=== PATIENT | female | born 1975 | race Asian ===

== ENCOUNTER 2023-04-24 12:39 | Emergency (ER) | payer OTHER, SELFPAY ==
[2023-04-24 12:42] VITALS: BP 120/65
--- NOTE | 2023-04-24 13:17 | ED.GENMED ---
History of Present Illness
<Elizabeth Manriquez PA-C - Last Filed: 04/24/23 18:05>
General
Chief Complaint: Chest Pain
Source: patient
Exam Limitations: none
Time Seen by Provider: 04/24/23 13:14
Nursing documentation reviewed up to this point in time: agreed with
Travel History
Have you had any contact with someone who has COVID-19?: No
Do you have any symptoms of coronavirus? Fever > 100 degrees, chills, cough, shortness of breath, sore throat, loss of taste or smell, muscle aches, or headache?: No
History of Present Illness
History of Present Illness:
This is a 48-year-old male with past medical history of hypothyroidism, anxiety, depression is presenting to the emergency department today with chest pain x 1 week. She states that the chest pain started randomly a week ago and she describes the
pain as a tightness. She says the pain is intermittent and is a 6-7 out of 10 when it comes on. She states that the pain is radiated to the right arm and right neck, as well as the legs. She states that she has numbness and tingling in her right
arm and hand. She has associated dry cough, and nausea. She denies fevers or chills, shortness of breath. She denies any recent surgeries, history of cancer, long distance travel. She states that she has also had increased palpitations. She
says she that she gets palpitations with her anxiety but she states that she gets these even she does not feel anxious. They come on randomly and are not associated necessarily with the pain. She tried Pepcid for pain think it could be heartburn
but that this did not help. She takes sertraline and lamotrigine for her anxiety/depression and wears an estradiol patch.
Past History
<Elizabeth Manriquez PA-C - Last Filed: 04/24/23 18:05>
Past History
ED Past Medical History: Hypothyroidism and Psychiatric
ED Past Surgical History: Appendectomy and Gynecological (Total abdominal hysterectomy)
Social History
Tobacco: Non-smoker
Drug: None
Personal:
Living: with family
Family History
Family History: Other (No early heart disease or coronary artery disease)
Phy Exam
<Elizabeth Manriquez PA-C - Last Filed: 04/24/23 18:05>
Physical Exam
Physical Exam:
General: Patient is well-appearing in no acute distress.
Skin: Warm and dry, no rashes or lesions
Cardiac: Regular rate and rhythm, no murmurs. Chest pain is not reproducible on exam.
Pulm: Normal respiratory effort, lung sounds equal no ascites no wheezes, rales, or rhonchi
Abdomen: abdomen is non-distended and non-tender
Scores
<Elizabeth Manriquez PA-C - Last Filed: 04/24/23 18:05>
Heart Score for Chest Pain Patients
STEMI patient?: No
History: Slightly or Non-Suspicious
ECG: Normal
Age: >45 - <65 years
Risk Factors: No Risk Factors
Troponin: </= Normal Limit
Heart Score for Chest Pain Patients: 1
Heart Score Risk: 2.5% MACE over next 6 weeks
Course
<Elizabeth Manriquez PA-C - Last Filed: 04/24/23 18:05>
Orders/Labs/Results
Orders:
Orders
04/24/23 12:40
ECG [Electrocardiogram (*1)] Urgent
Reason for Study: Chest Pain
EKG- Treatment ONCE
04/24/23 12:46
Test Result ONCE
04/24/23 12:58
Complete Blood Count/With Diff Urgent
Comprehensive Metabolic Panel Urgent
HCG, Serum Qualitative Screen Urgent
TSH Reflex To Free T4 Urgent
Comment: ADD
Troponin I Urgent
04/24/23 13:57
Add On- LAB Urgent
Tests Added?: TSH reflex T4
04/24/23 14:02
D-Dimer Urgent
Abnormal Lab Results
04/24/23
12:58
WBC 4.3 L 10^3/uL
(4.8-10.8)
RBC 5.80 H 10^6/uL
(4.20-5.40)
Hgb 10.9 L g/dL
(12.0-16.0)
Hct 35.7 L %
(37.0-47.0)
MCV 61.6 L fL
(81.0-99.0)
MCH 18.8 L pg
(27.0-31.0)
MCHC 30.5 L g/dL
(33.0-37.0)
RDW 15.9 H %
(11.5-14.5)
Carbon Dioxide 32 H mmol/L
(22-30)
04/24/23 12:58
04/24/23 12:58
Vital Signs
Initial and Last Documented VS:
Initial Vital Signs
Temp Pulse Resp BP Pulse Ox
98.2 F 72 18 120/65 98
04/24/23 12:42 04/24/23 12:42 04/24/23 12:42 04/24/23 12:42 04/24/23 12:42
Last Documented Vital Signs
Temp Pulse Resp BP Pulse Ox
98.2 F 62 18 109/80 98
04/24/23 12:42 04/24/23 16:10 04/24/23 16:10 04/24/23 16:10 04/24/23 16:10
<Vicky Edwards MD - Last Filed: 04/24/23 14:51>
Orders/Labs/Results
Orders:
Orders
04/24/23 12:40
ECG [Electrocardiogram (*1)] Urgent
Reason for Study: Chest Pain
EKG- Treatment ONCE
04/24/23 12:46
Test Result ONCE
04/24/23 12:58
Complete Blood Count/With Diff Urgent
Comprehensive Metabolic Panel Urgent
HCG, Serum Qualitative Screen Urgent
TSH Reflex To Free T4 Urgent
Comment: ADD
Troponin I Urgent
04/24/23 13:57
Add On- LAB Urgent
Tests Added?: TSH reflex T4
04/24/23 14:02
D-Dimer Urgent
Abnormal Lab Results
04/24/23
12:58
WBC 4.3 L 10^3/uL
(4.8-10.8)
RBC 5.80 H 10^6/uL
(4.20-5.40)
Hgb 10.9 L g/dL
(12.0-16.0)
Hct 35.7 L %
(37.0-47.0)
MCV 61.6 L fL
(81.0-99.0)
MCH 18.8 L pg
(27.0-31.0)
MCHC 30.5 L g/dL
(33.0-37.0)
RDW 15.9 H %
(11.5-14.5)
Carbon Dioxide 32 H mmol/L
(22-30)
04/24/23 12:58
04/24/23 12:58
Vital Signs
Initial and Last Documented VS:
Initial Vital Signs
Temp Pulse Resp BP Pulse Ox
98.2 F 72 18 120/65 98
04/24/23 12:42 04/24/23 12:42 04/24/23 12:42 04/24/23 12:42 04/24/23 12:42
Last Documented Vital Signs
Temp Pulse Resp BP Pulse Ox
98.2 F 62 18 109/80 98
04/24/23 12:42 04/24/23 16:10 04/24/23 16:10 04/24/23 16:10 04/24/23 16:10
<Elizabeth Manriquez PA-C - Last Filed: 04/24/23 18:05>
MDM/Problems Addressed
Differential Diagnosis Includes:
Differentials include ACS, pulmonary embolism, overdosing of thyroid medication, musculoskeletal strain/sprain, physical manifestations of anxiety anxiety,
MDM/Problems Addressed:
Chest pain
Chronic conditions affecting care:
hyperthyroidism, anxiety, depression
<VALENTIN Farley Last Filed: 04/24/23 18:05>
*Pulse Oximetry
Patient hypoxic: no
*EKG
Interpreted by ED Provider?: Yes
EKG Intrepretation Date: 04/24/23
Interpretation: abnormal
Comparison EKG: no comparison EKG present
Heart Rate: 72
Rate: normal
Rhythm: sinus
[place]: normal axis
Interval: normal interval
QRS Pattern: normal QRS
Ischemia: T-wave inversion (T wave inversions in anterior leads )
*[employer] Interpretation
Rate: normal
Interpretation: normal
Heart Rate: 70
Rhythm: sinus
*Critical Care Note
Total Time (30-74mins, 75-104mins- exclusive of procedures): Not Applicable
Data Reviewed
Review of Other/Old Records Reveals: Records (Reviewed previous records, patient was recently seen in the ER for abdominal pain in July 2021)
Prescriptions/Medications Considered But Not Given:
n/a
Further Testing Considered But Not Given:
n/a
<VALENTIN Farley Last Filed: 04/24/23 18:05>
Patient Management
Escalation/DeEscalation of care consider admission/obs:
This is a 48-year-old female with past medical history of anxiety, depression, hypothyroidism with chest pain. Her EKG shows normal sinus rhythm with regular rate and T wave inversions in anterior leads, however there is no previous EKGs to review.
Her troponin is with in normal limits. Her CBC and CMP are unremarkable. Considering her use of exogenous estrogen, and no other explainable cause of her chest pain, we did order a D-dimer. D-dimer was within normal limits. Considering her pain
is intermittent and has been going on for many days, there is no indication to repeat troponin. Her TSH is low but T4 is pending but we advised patient that she will be called with the results and we will have her follow-up with her primary care
provider this week. Advised to return should she experience worsening of her symptoms.
ED Attending Note
<Elizabeth Manriquez PA-C - Last Filed: 04/24/23 18:05>
-
Portions of this chart may have been created with voice recognition software.� Occasional wrong word or��sound alike� substitutions may have occurred due to the inherent limitations of voice recognition software.
<Vicky Edwards MD - Last Filed: 04/24/23 14:51>
ED Attending Note
Patient seen and examined by attending physician: Yes
I performed the substantive portion of visit, reviewed & personally made and approve the management plan that is documented in note by myself or TEVIN.: Yes
ED Attending Note:
48-year-old female complains of right-sided chest pain for the last 2 weeks. She says it is been constant, but will wax and wane in intensity without specific provoking or relieving factors. She thought it might be heartburn and took an antacid
without full relief of symptoms. Sometimes the pain will radiate to her neck or shoulder and sometimes even her arm with vague associated numbness/tingling. Today it seemed to be more central which prompted her to call the PCP and she was referred
here. She denies dyspnea. She states that when she gets the pain or associated palpitations she will do deep breathing which helps her 'calm down' and her symptoms improved but not fully resolved. She denies abdominal pain, back pain, headache,
dizziness, leg swelling, recent immobilization, recent trauma. Patient is on an estrogen patch. D-dimer pending, history and physical very unlikely to be consistent with ACS, atypical symptoms, normal troponin in the context of constant symptoms
for the last 2 weeks. She specifically states she has not been pain-free in the last 2 weeks. Highly doubt dissection, not sudden onset ripping or tearing quality, etc. No neurological findings.
Discharge Plan
Departure
Patient Disposition: Home (Routine Discharge)
Date of Disposition: 04/24/23
Time of Disposition: 16:05
Patient with high blood pressure during this ER visit?: Yes
Condition: Good
Discharge Problem:
Chest pain
Instructions: Chest Pain That Is Not Caused by the Heart (DC), Chest Pain (DC)
Prescriptions:
No Action
hydrocodone-acetaminophen [[place]] 1 EACH tablet
1 ea PO Q6HPRN PRN (Reason: pain) Qty: 12 0RF
lamotrigine 200 MG tablet
200 mg PO DAILY
levothyroxine 88 MCG tablet
88 mcg PO DAILY
Sertraline
175 mg PO DAILY
dicyclomine 20 MG tablet
20 mg PO QIDPRN PRN (Reason: abdominal pain) 4 Days Qty: 15 0RF
ondansetron 4 MG tablet,disintegrating
4 mg PO Q8H 2 Days Qty: 5 0RF
Referrals:
Mary Pastor MD [Family Provider] -
Activity Restrictions/Additional Instructions:
You will receive a call regarding your thyroid hormone levels.
Please follow-up with your primary care provider this week
Please return to the emergency department should you experience a worsening of your symptoms, your back pain, weakness on one side of your body, shortness of breath, or other concerning symptoms.
Interventions
Interventions:
*Risk Screen - Suicide Last Done: 04/24/23 12:44
*General Assessment Last Done: 04/24/23 12:44
*Neglect/Abuse Screening Last Done: 04/24/23 12:44
ED- Fall Risk Assessment Last Done: 04/24/23 13:07
*Nursing Disposition Last Done: 04/24/23 16:21
ED- Cardiac Assessment Last Done: 04/24/23 13:07
Discharge Date and Time
Discharge Date/Time: 04/24/23 16:21
[2023-04-24 13:28] LABS: HCG, Serum Qualitative Screen Negative
[2023-04-24 13:31] LABS: % Basophils 0.7 % (0-2); % Eosinophils 2.3 % (0-6); % Monocytes 6.1 % (1.7-9.3); % Neutrophils 52.9 % (42.2-75.2); Absolute Eosinophils 0.1 10^3/uL (0-0.7); Absolute Lymphocytes 1.6 10^3/uL (1.2-3.4); Absolute Monocytes 0.3 10^3/uL (0.1-0.6); Absolute Neutrophils 2.3 10^3/uL (1.4-6.5); Hematocrit 35.7 % (37.0-47.0); Hemoglobin 10.9 g/dL (12.0-16.0); Mean Corp Hgb Conc. 30.5 g/dL (33.0-37.0); Mean Corpuscular Hgb 18.8 pg (27.0-31.0); Mean Corpuscular Volume 61.6 fL (81.0-99.0); Nucleated Red Blood Cells % 0 %; Platelet Count 191 10^3/uL (130-400); Red Cell Dist. Width 15.9 % (11.5-14.5); White Blood Cell Count 4.3 10^3/uL (4.8-10.8)
[2023-04-24 13:36] LABS: ALT (SGPT) 21 U/L (0-35); AST (SGOT) 22 U/L (14-36); Albumin 4.4 g/dl (3.5-5.0); Alkaline Phosphatase 96 U/L (38-126); Blood Urea Nitrogen 7 mg/dl (7-17); Calcium 9.5 mg/dl (8.4-10.2); Carbon Dioxide 32 mmol/L (22-30); Chloride 103 mmol/L (98-107); Glucose 95 mg/dl (70-99); Potassium 3.7 mmol/L (3.5-5.1); Sodium 139 mmol/L (135-145); Total Bilirubin 0.7 mg/dl (0.2-1.3); Total Protein 7.5 g/dl (6.3-8.2); eGFR > 60.00
[2023-04-24 13:46] LABS: Troponin I < 0.012 ng/ml
[2023-04-24 14:52] VITALS: BP 116/74
[2023-04-24 15:11] LABS: D-Dimer 0.44 ug/mlFEU (0.00-0.50)
[2023-04-24 16:10] VITALS: BP 109/80
[2023-04-24 16:21] LABS: TSH Reflex To Free T4 1.35 uIU/ml (0.47-4.68)
== END 2023-04-24 16:21 | disposition home or self-care (01) ==
LOC: EMR 12:39
PROVIDERS: Emergency Medicine; Physician Assistant; EMERGENCY PHYSICIAN Emergency Medicine; FAMILY PHYSICIAN Family Medicine
DX: R07.89 Other chest pain (principal); R11.0 Nausea; M54.2 Cervicalgia; R05.9 Cough, unspecified; M79.601 Pain in right arm; R20.0 Anesthesia of skin; R20.2 Paresthesia of skin; R00.2 Palpitations; M79.604 Pain in right leg; M79.605 Pain in left leg; E03.9 Hypothyroidism, unspecified; F32.A Depression, unspecified; F41.9 Anxiety disorder, unspecified; R03.0 Elevated blood-pressure reading, without diagnosis of hypertension; Z79.899 Other long term (current) drug therapy
CPT/HCPCS: 99283; 80053; 84443; 84484; 84703; 85025; 85379; 93005

== ENCOUNTER 2023-04-29 07:30 | Emergency (ER) | payer OTHER, SELFPAY ==
[2023-04-29 07:44] VITALS: BP 150/83
[2023-04-29 08:57] VITALS: BMI 26.5
[2023-04-29 09:13] VITALS: BP 117/80
--- NOTE | 2023-04-29 09:21 | ED.GENMED ---
History of Present Illness
General
Chief Complaint: Chest Pain
Source: patient, records and spouse
Time Seen by Provider: 04/29/23 09:05
Travel History
Have you had any contact with someone who has COVID-19?: No
Do you have any symptoms of coronavirus? Fever > 100 degrees, chills, cough, shortness of breath, sore throat, loss of taste or smell, muscle aches, or headache?: No
History of Present Illness
History of Present Illness:
48-year-old female with past medical history of anxiety presenting to the emergency department after she awoke this morning with continued intermittent episodes of shortness of breath, chest tightness, cold sweat, back pain, abdominal pain,
paresthesia to bilateral upper and lower extremity, similar to previous episodes of symptoms earlier this week that brought patient to the emergency department, symptoms now mostly resolved but patient still stating she feels some discomfort in her
back and the paresthesias in her upper and lower extremities. Patient notes that the chest discomfort has been going on intermittently for a little over 1 week without any specific etiology. They note that emergency department workup did not
reveal much outside of a mildly low TSH on her last visit. Patient and note that she has been on medications for her anxiety in the past and state about 5 or 6 months ago her psychiatrist decreased her Zoloft from 175 mg daily to 150 mg
daily. Social and family history were both noncontributory.
Past History
Past History
ED Past Medical History: Hypothyroidism and Psychiatric
ED Past Surgical History: Appendectomy and Gynecological (Total abdominal hysterectomy)
Social History
Tobacco: Non-smoker
Alcohol: None
Drug: None
Personal:
Living: with family
Family History
Family History: Other (No early heart disease or coronary artery disease)
Review of Systems
Review of Systems
All Other Systems: ROS reviewed and negative except as documented in HPI and ROS
Phy Exam
Physical Exam
Physical Exam:
GENERAL: Alert , in no apparent distress, soft-spoken, somewhat anxious affect
EYE: Clear conjunctiva
NECK: Supple
ENT: o/p clr, mmm.
CARDIAC: Regular rate and rhythm, no murmur.
LUNGS: Clear breath sounds bilaterally, no acute respiratory distress, no wheezes/rales/rhonchi
ABDOMEN: Soft, without focal tenderness, no r/g, no cvat
Back: Mild tenderness left lumbosacral region
NEUROLOGICAL: Alert and oriented, moves all extremities, sensation grossly intact to light touch throughout
SKIN: Warm and dry, skin intact.
MUSCULOSKELETAL: No edema, well perfused.
PSYCH: Normal and appropriate interaction.
Scores
Heart Failure Risk
Heart Failure Risk Score: Not Applicable
Heart Score for Chest Pain Patients
STEMI patient?: No
History: Slightly or Non-Suspicious
ECG: Normal
Age: >45 - <65 years
Risk Factors: No Risk Factors
Troponin: </= Normal Limit
Heart Score for Chest Pain Patients: 1
Heart Score Risk: 2.5% MACE over next 6 weeks
Withdrawal Assessment of Alcohol
Withdrawal Assessment Completed?: Not applicable
Course
Orders/Labs/Results
Orders:
Orders
04/29/23 07:38
Electrocardiogram (*1) Urgent
Reason for Study: Chest Pain
EKG- Treatment ONCE
04/29/23 09:21
CR Chest - 2 Views Urgent
Comment:
Reason For Exam: chest pain, SOB
04/29/23 09:24
Complete Blood Count/With Diff Urgent
Comprehensive Metabolic Panel Urgent
Lipase Urgent
Troponin I Urgent
04/29/23 10:47
Urinalysis Reflex To Culture Urgent
Date Specimen was Collected: 04/29/23
Time Specimen was Collected: 10:46
Abnormal Lab Results
04/29/23
09:24
RBC 5.78 H 10^6/uL
(4.20-5.40)
Hgb 10.7 L g/dL
(12.0-16.0)
Hct 34.9 L %
(37.0-47.0)
MCV 60.4 L fL
(81.0-99.0)
MCH 18.5 L pg
(27.0-31.0)
MCHC 30.7 L g/dL
(33.0-37.0)
RDW 16.1 H %
(11.5-14.5)
Chloride 108 H mmol/L
(98-107)
Glucose 100 H mg/dl
(70-99)
04/29/23 09:24
04/29/23 09:24
Vital Signs
Initial and Last Documented VS:
Initial Vital Signs
Temp Pulse Resp BP Pulse Ox
99.0 F 77 20 150/83 100
04/29/23 07:44 04/29/23 07:44 04/29/23 07:44 04/29/23 07:44 04/29/23 07:44
Last Documented Vital Signs
Temp Pulse Resp BP Pulse Ox
98.2 F 66 19 111/74 98
04/29/23 12:00 04/29/23 11:45 04/29/23 11:45 04/29/23 11:00 04/29/23 11:06
MDM/Problems Addressed
Differential Diagnosis Includes:
Panic attack/anxiety attack, less concern for ACS given normal EKG here today combined with workup done 3 days ago, dissection considered however given patient's symptoms have been ongoing intermittently for 1 week with lack of sudden onset symptoms
and overall stability I also feel that this diagnosis is unlikely, patient had negative D-dimer so PE is also considered much less likely.
MDM/Problems Addressed:
48-year-old female presenting back to the emergency department for reevaluation of continued and persistent symptoms, overall there are a multitude of symptoms without much focality. I do suspect anxiety/panic attack are the most likely diagnosis
however will reobtain cardiac workup. Patient did not have a chest x-ray done on the last visit so will obtain this. I did consider CT imaging however I do not suspect PE or dissection to be a likely diagnosis. Patient did have a CT of the
abdomen and pelvis which did not show any aneurysm back in May 2021.
Chronic conditions affecting care: Other (Anxiety/panic disorder)
*Pulse Oximetry
Patient hypoxic: no
*Critical Care Note
Total Time (30-74mins, 75-104mins- exclusive of procedures): Not Applicable
Data Reviewed
Review of Other/Old Records Reveals: Labs and Radiology Studies
Source: patient, records and spouse
Patient Management
Escalation/DeEscalation of care consider admission/obs:
Patient workup is unremarkable for any acute pathologies. I feel comfortable discharging the patient home. She did have a mild anemia as part of her workup but this appears to be chronic. I did notify outpatient cardiology office to help
facilitate outpatient follow-up. I also notified patient's primary care physician to help facilitate follow-up as well. Patient is aware of return precautions emergency department but otherwise stable for discharge home.
ED Attending Note
-
Portions of this chart may have been created with voice recognition software.� Occasional wrong word or��sound alike� substitutions may have occurred due to the inherent limitations of voice recognition software.
Discharge Plan
Departure
Patient Disposition: Home (Routine Discharge)
Date of Disposition: 04/29/23
Time of Disposition: 11:18
Patient with high blood pressure during this ER visit?: Yes
Discharge Problem:
Chest pain
Instructions: Chest Pain DCA Follow Up
Prescriptions:
No Action
hydrocodone-acetaminophen [[place]] 1 EACH tablet
1 ea PO Q6HPRN PRN (Reason: pain) Qty: 12 0RF
lamotrigine 200 MG tablet
200 mg PO DAILY
levothyroxine 88 MCG tablet
88 mcg PO DAILY
Sertraline
175 mg PO DAILY
dicyclomine 20 MG tablet
20 mg PO QIDPRN PRN (Reason: abdominal pain) 4 Days Qty: 15 0RF
ondansetron 4 MG tablet,disintegrating
4 mg PO Q8H 2 Days Qty: 5 0RF
Referrals:
Mary Pastor MD [Family Provider] -
Interventions
Interventions:
*Risk Screen - Suicide Last Done: 04/29/23 08:59
*General Assessment Last Done: 04/29/23 08:59
*Neglect/Abuse Screening Last Done: 04/29/23 08:59
ED- Fall Risk Assessment Last Done: 04/29/23 09:09
*ED COVID-19 Vaccine History Last Done: 04/29/23 08:59
*Nursing Disposition Last Done: 04/29/23 12:22
ED- Cardiac Assessment Last Done: 04/29/23 09:08
Discharge Date and Time
Discharge Date/Time: 04/29/23 12:22
[2023-04-29 09:34] LABS: % Basophils 0.5 % (0-2); % Immature Granulocytes 0.3 % (0-0.5); % Lymphocytes 22.6 % (20.5-51.1); % Monocytes 6.5 % (1.7-9.3); % Neutrophils 69.1 % (42.2-75.2); Absolute Eosinophils 0.1 10^3/uL (0-0.7); Absolute Lymphocytes 1.3 10^3/uL (1.2-3.4); Absolute Monocytes 0.4 10^3/uL (0.1-0.6); Absolute Neutrophils 4.1 10^3/uL (1.4-6.5); Hematocrit 34.9 % (37.0-47.0); Hemoglobin 10.7 g/dL (12.0-16.0); Mean Corp Hgb Conc. 30.7 g/dL (33.0-37.0); Mean Corpuscular Hgb 18.5 pg (27.0-31.0); Mean Corpuscular Volume 60.4 fL (81.0-99.0); Nucleated Red Blood Cells % 0 %; Platelet Count 180 10^3/uL (130-400); Red Blood Cell Count 5.78 10^6/uL (4.20-5.40); Red Cell Dist. Width 16.1 % (11.5-14.5); White Blood Cell Count 5.9 10^3/uL (4.8-10.8)
[2023-04-29 09:46] LABS: ALT (SGPT) 22 U/L (0-35); AST (SGOT) 23 U/L (14-36); Albumin 4.3 g/dl (3.5-5.0); Alkaline Phosphatase 101 U/L (38-126); Blood Urea Nitrogen 9 mg/dl (7-17); Calcium 9.2 mg/dl (8.4-10.2); Carbon Dioxide 25 mmol/L (22-30); Chloride 108 mmol/L (98-107); Estimated Creatinine Clearance 97 ml/min; Glucose 100 mg/dl (70-99); Lipase 94 U/L (23-300); Potassium 4.1 mmol/L (3.5-5.1); Sodium 139 mmol/L (135-145); Total Bilirubin 0.6 mg/dl (0.2-1.3); Total Protein 7.3 g/dl (6.3-8.2); eGFR > 60.00
[2023-04-29 09:55] LABS: Troponin I < 0.012 ng/ml
[2023-04-29 10:44] VITALS: BP 112/81
[2023-04-29 11:00] VITALS: BP 111/74
[2023-04-29 11:07] LABS: Urine Albumin Negative (Neg - Trace); Urine Bilirubin Negative (Negative); Urine Character Clear (Clear); Urine Color Yellow; Urine Glucose Negative (Negative); Urine Ketone Negative (Negative); Urine Leukocyte Negative (Negative); Urine Nitrite Negative (Negative); Urine Occult Blood Negative (Negative); Urine Specific Gravity 1.005 (<1.030); Urine Urobilinogen Negative (Neg - 1+)
== END 2023-04-29 12:22 | disposition home or self-care (01) ==
LOC: EMR 07:30
PROVIDERS: Physician Assistant Medical; EMERGENCY PHYSICIAN Emergency Medicine; FAMILY PHYSICIAN Family Medicine
DX: R07.89 Other chest pain (principal); R06.02 Shortness of breath; F41.9 Anxiety disorder, unspecified; E03.9 Hypothyroidism, unspecified; F41.0 Panic disorder [episodic paroxysmal anxiety]; Z90.49 Acquired absence of other specified parts of digestive tract; Z90.710 Acquired absence of both cervix and uterus
CPT/HCPCS: 99283; 71046; 80053; 81003; 83690; 84484; 85025; 93005

== ENCOUNTER → 2023-05-09 16:28 | Outpatient (REF) | payer OTHER, SELFPAY | LOC: HWWDC 16:28 | PROVIDERS: ATTENDING PHYSICIAN Family Medicine | DX: Z12.31 Encounter for screening mammogram for malignant neoplasm of breast (principal) | CPT/HCPCS: 77063; 77067 ==

== ENCOUNTER → 2023-05-22 09:16 | Outpatient (REF) | payer OTHER, SELFPAY | LOC: WDC 09:16 | PROVIDERS: ATTENDING PHYSICIAN Family Medicine | DX: R92.8 Other abnormal and inconclusive findings on diagnostic imaging of breast (principal) | CPT/HCPCS: 76642 ==